=== PATIENT | male | born 1960 | race Caucasian/White ===

== ENCOUNTER → 2016-09-04 | Outpatient (CLI) | payer OTHER, MEDICARE ==
[2016-04-30 19:00] VITALS: BP 133/61
[~2016-09-04] MED LIST: ALPR0.254 PO; BUDE10.2 IH; CITA20TA5 PO; CYCL10TA2 PO; DULO60CA6 PO; HYDR-971 PO; IMIP10TA2 PO; IOHEXOL 180 MG/ML 10 ML VIAL. ONE; LISD20CA3 PO; METO25TA4 PO; OMEP20TA PO; SIMV20TA3 PO; TRAM50TA PO; methylPREDNISolone ACETATE 40 MG/ML VIAL. ONE; methylPREDNISolone ACETATE 80 MG/ML VIAL. ONE
--- NOTE | 2016-09-04 11:38 | PAIN ---
DATE OF SERVICE: 09/04/2016 DIAGNOSES: Lumbar radiculopathy, lumbar degenerative disk disease, lumbar spinal stenosis. HISTORY OF PRESENT ILLNESS: The patient is a 56-year-old male who returns for followup status post lumbar epidural steroid injection x 1. The patient reports about 50% improvement overall in his low back, bilateral lower extremities. The patient reports it is worse with activity, still, but much better and relief that he feels after he has been exercising comes all ____ prior to injection. The patient reports anywhere from a 3-4 on a scale 10 anywhere to a 10 on a scale of 10 when he is bending and stooping. He has been doing a lot of hospital ____ and walking a lot up and down his driveway, which causes some increasing pain in his back and his legs as well, but again improved by about 50% overall. The patient reports no new motor or sensory deficits, no new bowel or bladder incontinence or other complaints. PHYSICAL EXAMINATION: VITAL SIGNS: The patient's blood pressure 120/78, pulse 72, respirations 18, temperature 97.8 degrees Fahrenheit, height is 5 feet 7 inches, weighs 164 pounds. GENERAL: The patient is awake, alert, oriented, appropriate, very pleasant demeanor. HEENT: Shows normocephalic, atraumatic. Extraocular movements are intact and symmetrical. Oral cavity shows mucous membranes moist and pink. Dentition is intact. NECK: Shows anterior throat supple. CHEST: Shows normal on inspection. Breath sounds are clear to auscultation bilaterally. HEART: Shows S1 and S2 clear. ABDOMEN: Obese, soft, nontender, nondistended. BACK: Shows spine grossly midline. Lumbar paraspinous musculature shows some moderate tenderness with palpation only in the lower lumbar distribution only diffusely. No radiation of pain. The patient shows good rotational motion both laterally as well as extension and flexion of lumbar spine. EXTREMITIES: Lower extremities show deep tendon reflexes at 1+ in the patellar and tendo calcaneus tendons are equal. Motor exam is strong with approximately 4 on a scale of 5, but equal dorsiflexion, extension and symmetrical strength bilaterally. Options were discussed with the patient. The patient's old chart was reviewed as was his current medication regimen updated. Current review of systems updated today as well. We will proceed with a second lumbar epidural steroid injection today with fluoroscopic guidance. Risks were again discussed including, but not limited to bleeding, infection, possibility of epidural hematoma, subsequent neurologic compromise, dural puncture, headaches, spinal cord and/or nerve damage, side effects of steroid medication and poor results regarding pain control. The patient understands and wishes to proceed. The patient will return to clinic in approximately 2 weeks for followup. He was counseled on return appointment, activity level and side effects to be aware of. DIAGNOSES: Lumbar radiculopathy with lumbar spinal stenosis and lumbar degenerative disk disease. PROCEDURES: Lumbar epidural steroid injection, translaminar approach at L4-L5 level using C-arm fluoroscopic guidance under sterile prep and drape using local anesthetic. MEDICATIONS INJECTED: A 120 mg Depo-Medrol plus 10 mL of preservative-free normal saline and 2 mL of Isovue contrast. CONDITION AT DISCHARGE: Stable. The patient tolerated procedure well, had no complications. NANCY SHIELDS MD DR: RUSS/lisa JOB#: [id number] / [id number]
== END | disposition home or self-care (01) ==
LOC: PNCL 07:33
PROVIDERS: ATTEND Anesthesiology
DX: M51.16 Intervertebral disc disorders with radiculopathy, lumbar region (principal)
CPT/HCPCS: 62323; J1030; J1040

== ENCOUNTER → 2016-09-18 | Outpatient (CLI) | payer OTHER, MEDICARE ==
[2016-04-30 19:00] VITALS: BP 133/61
--- NOTE | 2016-09-19 01:08 | PAIN ---
DATE OF SERVICE: 09/18/2016 PROGRESS NOTE DIAGNOSES: Lumbar radiculopathy with lumbar degenerative disk disease, lumbar spinal stenosis. HISTORY OF PRESENT ILLNESS: The patient is a 56-year-old male who returns for followup status post lumbar epidural steroid injection x 2. The patient reports initially about 50% improvement and then the pain returns after about 2 weeks. Following the injection, the patient reports pain in low back, bilateral lower extremities, mostly in the posterior gluteus, posterior thighs, lateral thighs, anterior thighs, medial lower legs bilaterally, essentially equal right and left somewhat worse on the right, occasionally, but that is more noticeable with standing and walking, but with standing still. The patient reports that the pain is pretty much even bilaterally. The patient reports lifting, standing, increase in activity causes pain as well as anywhere from 3-10 on a scale of 10 depending on activity. The patient reports no new motor or sensory deficits, no new bowel or bladder incontinence. No new deficits. PHYSICAL EXAMINATION: VITAL SIGNS: Today, the patient's blood pressure is 129/68, pulse 83, respirations 18, temperature 97.8 degrees Fahrenheit, height is 5 feet 7 inches, weight is 169 pounds. GENERAL: The patient is awake, alert, oriented, appropriate, very pleasant demeanor. HEENT: Head shows normocephalic, atraumatic. Extraocular movements are intact and symmetrical. Oral cavity shows mucous membranes are moist and pink. Dentition is intact. NECK: Shows anterior throat supple without palpable lymphadenopathy noted. Swallow reflex is symmetrical. CHEST: Shows normal on inspection with breath sounds clear to auscultation bilaterally. HEART: Shows S1 and S2 clear. No murmurs are auscultated. ABDOMEN: The patient's abdomen is soft, nontender, nondistended. No palpable organomegaly is noted. BACK: Shows spine grossly midline. Lumbar paraspinous muscle shows some moderate tenderness with palpation in the middle and lower distribution of paraspinous muscle, but only diffusely without radiation, without asymmetry, good rotational motion both laterally as well as extension and flexion of lumbar spine without significant pain or difficulty. Lower extremities showed deep tendon reflexes 1+ in the patellar tendons. Motor exam is approximately 4 on a scale of 5, but equal and symmetrical with dorsiflexion, extension, quadriceps and hamstring flexion and is symmetrical. The patient's peripheral pulses are 1+ in the posterior tibial and dorsalis pedis pulses. No peripheral edema is present bilaterally. Options were discussed with the patient and the patient's old chart was reviewed. His current medication regimen updated and current review of systems updated to date as well. We will plan on third lumbar epidural steroid injections today as a third in the series with fluoroscopic guidance. Risks were again discussed including, but not limited to bleeding, infection, possibility of epidural hematoma, subsequent neurologic compromise, dural puncture, headaches, spinal cord and/or nerve damage, side effects of steroid medication and poor results regarding pain control. The patient understands and wishes to proceed. The patient will return to clinic in approximately 2 weeks for followup. He was counseled as to return appointment, activity level and side effects to be aware of. DIAGNOSES: Lumbar radiculopathy with lumbar degenerative disk disease, lumbar spinal stenosis. PROCEDURE: Lumbar epidural steroid injection in translaminar approach at L4-L5 level using C-arm fluoroscopic guidance. Under sterile prep and drape using local anesthetic, medications injected is 120 mg Depo-Medrol plus 10 mL of preservative-free normal saline and 2 mL Isovue for contrast. Condition at discharge is stable. The patient tolerated the procedure well and had no complications. NANCY SHIELDS MD DR: RUSS/lisa JOB#: [id number] / [id number] HECTOR Lincoln MD
== END | disposition home or self-care (01) ==
LOC: PNCL 07:30
PROVIDERS: ATTEND Anesthesiology
DX: M51.16 Intervertebral disc disorders with radiculopathy, lumbar region (principal); M48.06 Spinal stenosis, lumbar region
CPT/HCPCS: 62323; J1030; J1040; 62327

== ENCOUNTER → 2020-04-28 | Outpatient (CLI) | payer MEDICARE, OTHER ==
[2016-04-30 19:00] VITALS: BP 133/61
[~2020-04-28] MED LIST changes: -CITA20TA5 PO; +CITA20TA6 PO; +HYDR-3164 PO; -HYDR-971 PO; -IOHEXOL 180 MG/ML 10 ML VIAL. ONE; -LISD20CA3 PO; +LISD20CA4 PO; -OMEP20TA PO; +OMEP20TA8 PO; +SIMV20TA18 PO; -SIMV20TA3 PO; -methylPREDNISolone ACETATE 40 MG/ML VIAL. ONE; -methylPREDNISolone ACETATE 80 MG/ML VIAL. ONE
--- NOTE | 2020-04-28 14:56 | KCIC ---
MRI Lumbar Spine without contrast History: Lumbar spinal stenosis, previous surgery, lumbar strain with bilateral lower extremity weakness and numbness starting 04/04/2020 Technique: Multiplanar, multi sequential noncontrast MR imaging was performed of the lumbar spine. Comparison: None Findings: There has been vertebroplasty at L2 and L1 at which there are old vertebral body fractures. There is minimal osseous retropulsion of the superior aspect of L1 with mild indentation upon the ventral thecal sac. There is no significant marrow edema. There is negligible anterior spondylolisthesis L4-5, negligible posterior subluxation L3 relative to L4 and L2 relative to L3. Conus terminates at the superior aspect of L2. There is mild degenerative disc disease greatest L4-5, L2-3, T12-L1. There is posterior interspinous hardware at L4-5. There is mild reverse S-shaped curvature of the lumbar spine. T10-11: This level was not included on the axial images. Facet degenerative change contributes to likely at least moderate if not severe narrowing of the left neural foramen, likely mild narrowing on the right. T11-T12: There is mild facet degenerative change, minimal posterior narrowing of the right neural foramen. Spinal canal is overall adequate. T12-L1: There is mild facet degenerative change and buckling of the ligamentum flavum. Minimal osseous retropulsion of the superior aspect of L1 slightly indents the ventral thecal sac without spinal stenosis. There is mild narrowing of the right neural foramen, left neural foramen adequate. L1-L2: There is mild prominence of posterior epidural fat centrally. There is mild buckling of the ligamentum flavum and mild to moderate facet hypertrophic change. Spinal canal is overall adequate. There is mild right and azcr-ej-jgymbkez left neural foramina compromise. L2-L3: There is mild buckling of the ligamentum flavum and prominence of posterior epidural fat centrally. There is rhxm-do-pmelaubd facet hypertrophic change. There is negligible disc osteophyte complex. There is minimal narrowing of the far left lateral recess. There is mild bilateral neural foramina compromise greater on the left. L3-L4: There is moderate facet hypertrophic change and sxlc-vv-kubcgqep buckling of the ligamentum flavum. There is mild prominence of posterior epidural fat centrally. There is very minimal disc osteophyte complex. There is minimal narrowing of the far lateral recesses greater on the left. Central canal is adequate. There is yewx-ao-pjpcrnhu narrowing of the left neural foramen, very mild narrowing inferiorly on the right by disc osteophyte complex. L4-L5: There is mild buckling of the ligamentum flavum and vduj-oo-vqqdhmlw facet degenerative change. There is huoe-gg-hbnutlti narrowing of the far left lateral recess, minimally on the right. There is mild attenuation of the thecal sac centrally primarily from posterior epidural lipomatosis. There is mild narrowing of the left neural foramen, right neural foramen adequate. L5-S1: Spinal canal is adequate. There is very minimal disc osteophyte complex. There is mild facet degenerative change greater on the left, minimal fluid in the left facet articulation. There is mild narrowing of the right neural foramen, left neural foramen overall adequate. Impression: 1. There is pahz-ot-dtejzxah lateral recess stenosis at L4-5, mild narrowing of the far lateral recesses such as on the right at L4-5, on the left at L2-3, and bilaterally at L3-4. 2. There is mild abnormal alignment as stated, multilevel facet degenerative change. 3. There is mild degenerative disc disease greatest T12-L1, L2-3, and L4-5. 4. There is nbon-pq-tllkatbm narrowing of the left L1-L2 and L3-4 neural foramina, other minimal narrowing as stated. Electronically signed by: Neville Austin MD (04/28/2020 2:52 PM) [facility]
--- NOTE | 2020-04-28 15:29 | KCIC ---
[facility] [place] radiograph of the orbits 04/28/2020 CLINICAL HISTORY: Pre-MRI evaluation. History of metal exposure to the eyes. A [facility], [place] digital radiograph of the skull was obtained. No radiopaque foreign body is seen involving either orbit. The visualized paranasal sinuses are clear. No fracture is seen. IMPRESSION: No radiopaque foreign body is seen involving either orbit. Electronically signed by: Alexsander Aguilar MD (04/28/2020 3:26 PM) [id number]
== END ==
LOC: KCIC MRI 13:02
PROVIDERS: ATTEND Family Medicine
DX: Z13.5 Encounter for screening for eye and ear disorders (principal); M48.061 Spinal stenosis, lumbar region without neurogenic claudication; M51.35 Other intervertebral disc degeneration, thoracolumbar region
CPT/HCPCS: 70030; 72148